=== PATIENT | female | born 1965 | race Caucasian/White ===

== ENCOUNTER 2024-01-02 10:56 | Emergency (ER) | payer BC, SELFPAY ==
[2024-01-02] VITALS (20 sets, daily range): BP systolic 125–150; BP diastolic 69–90; PULSE 81–98; RESP 15–20; TEMP 36.3; O2SAT 95–100
--- NOTE | ~2024-01-02 | CT_ITS ---
EXAMINATION: CTA brain carotid DATE: 01/02/2024 11:59 INDICATION: Expressive aphasia TECHNIQUE: Computed tomographic angiography (CTA) of the head was performed with 100 mL Omnipaque-350 intravenous contrast. CTA of the neck was performed with intravenous contrast. The dose-length produ ct was 1020.74 mGy-cm. Maximum intensity projection and volume rendered 3D-reconstructions were creat ed by the technologist on a separate workstation. Automated exposure control and iterative reconstruc tion technique were employed. COMPARISON: 1102 hours FINDINGS: HEAD CTA: There is no intracranial hemorrhage, acute infarction, or abnormal mass lesion. The ventric les are normal. There is no abnormal mass effect or midline shift. The cerda-white matter differentiat ion is normal. The basal cisterns are patent. The orbits are normal. The paranasal sinuses, mastoids and calvarium are normal. There is no significant stenosis of the basilar artery or posterior cerebral arteries. There is no si gnificant stenosis of the intracranial internal carotid arteries or the anterior or middle cerebral a rteries. The anterior communicating artery and posterior communicating arteries are normal. There is no aneurysm. There is questionable occlusion of the right proximal M2 segment at its origin. NECK CTA: The thyroid gland is unremarkable. The submandibular and parotid glands are symmetric. Ther e is no lymphadenopathy. There are no masses identified. The airway is unremarkable. The superior med iastinum is unremarkable. There is moderate cervical spondylosis at C5-C6. There is 0% stenosis of the proximal right internal carotid artery relative to normal distal artery l umen diameter (NASCET criteria). There is 0% stenosis of the proximal left internal carotid artery re lative to normal distal artery lumen diameter. IMPRESSION: 1. Questionable occlusion of the right proximal M2 segment at its origin.. 2. 0% stenosis of the proximal right internal carotid artery relative to normal distal artery lumen d iameter (NASCET criteria). 3. 0% stenosis of the proximal left internal carotid artery relative to normal distal artery lumen di ameter. Reviewed, dictated and finalized at location F. [employer] IMPRESSION: 1. Questionable occlusion of the right proximal M2 segment at its origin.. 2. 0% stenosis of the proximal right internal carotid artery relative to normal distal artery lumen diameter (NASCET criteria). 3. 0% stenosis of the proximal left internal carotid artery relative to normal distal artery lumen diameter.
--- NOTE | ~2024-01-02 | CT_ITS ---
EXAMINATION: CT brain wo con INDICATION: Expressive aphasia COMPARISON: None TECHNIQUE: Standard unenhanced head CT. The dose-length product (DLP) was 529.67 mGy-cm. The mA was a djusted according to patient size. Iterative reconstruction technique was employed. FINDINGS: No intracranial hemorrhage, acute infarction, or abnormal mass lesion. The ventricles are n ormal. No abnormal mass effect or midline shift. The cerda-white matter differentiation is normal. The basal cisterns are patent. The orbits are normal. The paranasal sinuses, mastoids and calvarium are normal. IMPRESSION: 1. No acute intracranial abnormality. Reviewed, dictated and finalized at location F. R INTERN
--- NOTE | ~2024-01-02 | XR_ITS ---
EXAMINATION: XR chest 1V INDICATION: Strokelike symptoms TECHNIQUE: Frontal view of the chest is obtained. COMPARISON: 08/14/2016 FINDINGS: The lungs are free of acute opacities. No pleural effusion or pneumothorax. The cardiomedia stinal silhouette is normal. Healed right-sided rib fractures are noted. IMPRESSION: 1. No acute cardiopulmonary abnormality. Reviewed, dictated and finalized at location [facility]. TRIMMER
--- NOTE | 2024-01-02 11:02 | ECG_ITS ---
Measurements Intervals Silver Rate: 86 P: 50 MT: 161 QRS: 40 QRSD: 101 T: 42 QT: 382 QTc: 459 Interpretive Statements SINUS RHYTHM NO PREVIOUS ECG AVAILABLE FOR COMPARISON Electronically Signed On 01-02-2024 12:36:32 ACCREDITED LEGAL SECRETARY by Denys Alvarado M.D.
--- NOTE | 2024-01-02 11:10 | PC.NURSE ---
This RN offered wheelchair to pt. Pt refused and walked to stroke stop and CT scan w/steady gait and this RN at side. This RN also gave pt belonging bag to pt .
--- NOTE | 2024-01-02 11:25 | PC.NURSE ---
Patient and family state all symptoms have resolved.
[2024-01-02 11:31] LABS: Basophils Percent Auto 0.3 % (0.2-1.2); Eosinophils Absolute Auto 0.1 K/mm3 (0-0.3); Eosinophils Percent Auto 1.5 % (0-4.4); Hematocrit 39.3 % (37.0-47.0); Hemoglobin 13.4 g/dL (12.0-15.0); Immature Granulocyte Absolute 0.02 K/mm3 (0.00-0.031); Immature Granulocyte Percent A 0.3 % (0-0.5); Lymphocytes Percent Auto 20.6 % (18.3-44.2); Mean Corpuscular HGB Conc 34.1 g/dl (32-36); Mean Corpuscular Hemoglobin 31.6 pg (26-34); Mean Corpuscular Volume 92.7 fl (80-100); Mean Platelet Volume 9.3 fl (7.4-10.4); Monocytes Absolute Auto 0.5 K/mm3 (0.1-0.6); Monocytes Percent Auto 7.1 % (2.6-8.5); Neutrophils Absolute Auto 5.1 K/mm3 (1.3-6.7); Neutrophils Percent Auto 70.2 % (45.5-73.1); Platelet Count Result 274 k/mm3 (150-375); Red Blood Count 4.24 M/mm3 (4.2-5.4); Red Cell Distribution Width 12.6 % (11.5-14.5); White Blood Count 7.3 K/mm3 (4.5-10.0)
[2024-01-02 11:40] LABS: Prothrombin Time 13.5 Seconds (11.1-14.7)
[2024-01-02 11:43] LABS: Alanine Aminotransferase 25 U/L (6-35); Albumin Level 4.3 g/dL (3.5-5.1); Alkaline Phosphatase 110 U/L (38-126); Anion Gap 7 mmol/L (8-16); Aspartate Amino Transferase 29 U/L (14-36); Bilirubin,Total 0.7 mg/dL (0.2-1.3); Blood Urea Nitrogen 8 mg/dL (7-17); Carbon Dioxide 22 mmol/L (22-30); Chloride 102 mmol/L (98-107); Estimated CRCL calculation 85 ml/min; Estimated Glomerular Filt Rate > 60; Glucose 84 mg/dL (65-110); Potassium 4.4 mmol/L (3.4-5.0); Sodium 131 mmol/L (137-145)
[2024-01-02 11:54] LABS: Troponin I 0.016 ng/mL (0.000-0.034)
[2024-01-02 12:11] LABS: Ethanol 46 mg/dL (<10)
--- NOTE | 2024-01-02 12:24 | ED.NEUROSD ---
HPI - Neuro Symptoms/Deficit General Chief Complaint: Suspected CVA Stated Complaint: 0900 pt not talking right Time Seen by Provider: 01/02/24 11:04 History of Present Illness HPI Narrative: 58-year-old female presenting to the emergency department for evaluation for a brief episode dysarthria and difficulty with word finding. Patient's states that this morning at approximately 9:00 a.m. patient had a brief episode during which she was slurring her speech and she was not making much sense. states that the symptoms lasted a few minutes and she returned back to her baseline while they were EN route to the emergency department. Prior to coming into the hospital they walked a parking lot for a few minutes and she felt fine. patient denies any prior history GA, CVA. Upon arrival to the emergency department patient states that her symptoms have resolved and agrees that she is currently back to her baseline. Related Data Allergies Allergy/AdvReac Type Severity Reaction Status Date / Time Penicillins AdvReac Rash Verified 01/02/24 12:50 Review of Systems Review of Systems: All systems reviewed & are unremarkable except as noted in HPI and below Exam Narrative: APPEARANCE: Well appearing, no pain, no distress, well-nourished. HEAD: normocephalic, atraumatic. EYES: PERRLA/EOMI, conjunctivae clear. NOSE: Normal no drainage EARS:TMS clear with good light reflex. THROAT: Pharynx clear, no exudate. NECK: Supple. No adenopathy, no masses. RESPIRATORY: Airway patent, respirations nonlabored. Clear to auscultation bilaterally, no rales, rhonchi, wheezing. CARDIOVASCULAR: Regular rate and rhythm without murmurs rubs or gallops. ABDOMINAL: Soft, nontender, nondistended, normal bowel sounds MUSCULOSKELETAL: Moves all extremities. Strength/ROM intact, No edema, No calf tenderness. NEURO: Alert. Cranial nerves II through XII intact. Good gait. Good coordination. NIH score is 0 SKIN: Scar on right lip- when patient's face is resting she does have a slightly asymmetric smile but no facial droop with smiling, family confirms no change in facial expression PSYCHIATRIC: Normal affect/mood. Course Course Emergency Course: 58-year-old female presented emergency department for evaluation of a suspected TIA. Upon arrival to the emergency department patient's symptoms had resolved. CT without contrast showed a normal brain, CTA showed possible occlusion in the proximal M2. I discussed case with Dr. Queen and she would prefer the patient to be transferred to a higher level of care. I discussed case with [facility] and neurology did not feel the patient required a time sensitive transfer. With further discussion with Dr. Queen she still does not feel comfortable keeping the patient at our institution so she recommended calling additional places. Mode discussed the case with Neurology at [facility], Dr. Huber. And patient was accepted for transport. Vital Signs Vital signs: Vital Signs Temperature 97.4 F L 01/02/24 10:58 Pulse Rate 89 01/02/24 10:58 Respiratory Rate 16 01/02/24 10:58 Blood Pressure 150/85 H 01/02/24 10:58 Pulse Oximetry 98 01/02/24 10:58 Oxygen Delivery Room Air 01/02/24 10:58 Temperature 97.4 F L 01/02/24 10:58 Pulse Rate 83 01/02/24 16:15 Respiratory Rate 15 01/02/24 16:15 Blood Pressure 129/69 01/02/24 15:01 Pulse Oximetry 100 01/02/24 16:00 Oxygen Delivery Room Air 01/02/24 10:58 MDM - Neuro Symptoms/Deficit Lab Data 01/02/24 11:20 01/02/24 11:20 Labs: Lab Results 01/02/24 01/02/24 Range/Units 11:20 11:22 WBC 7.3 (4.5-10.0) K/mm3 RBC 4.24 (4.2-5.4) M/mm3 Hgb 13.4 (12.0-15.0) g/dL Hct 39.3 (37.0-47.0) % MCV 92.7 (80-100) fl MCH 31.6 (26-34) pg MCHC 34.1 (32-36) g/dl RDW 12.6 (11.5-14.5) % Plt Count 274 (150-375) k/mm3 MPV 9.3 (7.4-10.4) fl Immature Gran % (Auto) 0.3 (0-
[2024-01-02] MEDS: ASPIRIN 81 MG CHEWABLE TABLET 324 MG PO (13:18)
--- NOTE | 2024-01-02 14:11 | PC.NURSE ---
Spoke with Florence from [facility]. She states patient has been accepted , but will wait in our ER until there is a bed available. She states they will call when a bed is available for her
[2024-01-02 16:50] LABS: Glucose Point of Care 89 mg/dl (65-105)
== END 2024-01-02 17:44 | disposition short-term general hospital (02) ==
PROVIDERS: Emergency Provider Emergency Medicine; PCP Family Medicine Adolescent Medicine
DX: G45.9 Transient cerebral ischemic attack, unspecified (principal)
CPT/HCPCS: 36415; 70450; 70496; 70498; 71045; 80053; 80307; 81025; 82948; 84484; 85025; 85610; 85730; 93005; 99285; A9270; Q9967